=== PATIENT | female | born 1945 | race African-American/Black ===

== ENCOUNTER → 2017-04-03 | Outpatient (CLI) | payer MEDICARE, MEDICAID ==
[~2017-04-03] MED LIST: ATOR20TA65 PO; COR12 PO; DIPH1TAB PO; FURO40TA5 PO; GLIM1TAB2 PO; HYDR-3933 PO; METHIMAZOLE PO; ONDA4TAB50 PO; POTA10TA15 PO; RIVA20TA PO; TRAM50TA PO; XALAO EACHEYE; ZENPEP DR PO
== END | disposition home or self-care (01) ==
LOC: MRI 09:48
PROVIDERS: ATTEND Neurological Surgery
DX: M48.06 Spinal stenosis, lumbar region (principal); M12.88 Other specific arthropathies, not elsewhere classified, other specified site
CPT/HCPCS: 72148

== ENCOUNTER 2018-02-11 02:04 | Inpatient (IN) | payer MEDICARE, MEDICAID ==
[~2018-02-11] VITALS: Ht 162.6 cm; Wt 112.0 kg
[~2018-02-11 02:04] MED LIST changes: +BUDE6HFA INH; +CARV6.2548 PO; -COR12 PO; +DILT30TA38 PO; +ESOM40CA PO; +GABA-531 PO; +LATA2.5D2 EACHEYE; +ZET10 PO
[2018-02-11] MEDS ORDERED: ALBUTEROL (0.083%) 2.5MG/3ML NEB HHN STA (03:49)
[2018-02-11] MEDS ORDERED: PREDNISONE 20MG TABLET PO STA (03:49)
[2018-02-11] MEDS ORDERED: IPRATROPIUM BROMIDE (0.02%) 0.5MG/2.5ML NEB HHN STA (03:49)
[2018-02-11] MEDS ORDERED: MAGNESIUM 2 G PREMIX 50 ML IV ONE (04:00)
[2018-02-11] MEDS ORDERED: FUROSEMIDE 100MG/10ML VIAL IVP ONE (05:00)
[2018-02-11 05:06] LABS: BASOPHILS % 0.3 % (0.0-2.0); EOSINOPHILS % 0.4 % (0.0-5.0); HEMATOCRIT. 41.9 % (36.0-48.0); HEMOGLOBIN. 13.5 g/dL (12.0-16.0); LYMPHOCYTES % 10.3 % (20.0-50.0); MEAN CORPUSCULAR HEMOGLOBIN 29.2 pg (28.0-32.0); MEAN CORPUSCULAR VOLUME 90.4 fL (81.0-99.0); MONOCYTES % 10.5 % (2.0-8.0); NEUTROPHILS % 78.5 % (40.0-76.0); PLATELET 143 x1000/uL (130-400); RED BLOOD CELL COUNT 4.63 mill/uL (4.2-5.4); RED CELL DISTRIBUTION WIDTH 14.7 % (11.6-14.6)
[2018-02-11 05:07] LABS: CHLORIDE 112 mEq/L (98-107)
[2018-02-11 05:11] LABS: PARTIAL THROMBOPLASTIN TIME 26.2 sec (23.4-31.0); PROTHROMBIN TIME 10.7 sec (9.4-11.6)
[2018-02-11] MEDS: METOPROLOL TARTRATE 5MG/5ML VIAL IV SCH ×2 (05:48→07:34)
[2018-02-11] MEDS ORDERED: POTASSIUM CHLORIDE 20MEQ TABLET SR PO ONE (06:00)
[2018-02-11] MEDS ORDERED: DIPHENHYDRAMINE 50MG/ML VIAL IV PRN (10:15)
[2018-02-11] MEDS ORDERED: ONDANSETRON HCL 4MG/2ML VIAL IV PRN (10:15)
[2018-02-11] MEDS ORDERED: ENOXAPARIN 40MG/0.4ML SYR SUBCUT SCH (10:15)
[2018-02-11] MEDS ORDERED: ACETAMINOPHEN 325MG TABLET PO PRN (10:15)
[2018-02-11] MEDS ORDERED: CLONIDINE 0.1MG TABLET PO PRN (10:15)
[2018-02-11 10:38] LABS: BG BASE EXCESS -1.9 mmol/L (-2.0-2.0); BG CARBOXYHEMOGLOBIN 0.5 % (0.5-1.5); BG DEOXYHEMOGLOBIN 2.8 % (0.0-5.0); BG FRACTION INSPIRED OXYGEN 28; BG HCO3 ACT 20.9 mmol/L (22.0-26.0); BG METHEMOGLOBIN 0.1 % (0.0-1.5); BG OXYGEN SATURATION 97.2 % (92.0-98.5); BG OXYHEMOGLOBIN 96.6 % (94.0-97.0); BG PCO2 30.2 mmHg (35.0-45.0); BG PH 7.458 (7.350-7.450); BG PO2 95.6 mmHg (75.0-100.0); BG SAMPLE SITE RIGHT RADIAL; BG TOTAL HEMOGLOBIN 13.5 g/dL (12.0-18.0); BG VENT MODE NASAL CANNULA
[2018-02-11] MEDS ORDERED: TRAMADOL 50MG TABLET PO PRN (11:00)
[2018-02-11 12:32] LABS: LDL CHOLESTEROL 75 mg/dL (5-100)
[2018-02-11 12:34] LABS: HDL CHOLESTEROL 52 mg/dL (40-59)
[2018-02-11 15:36] VITALS: BP 122/74
[2018-02-11] MEDS: FUROSEMIDE 40MG TABLET PO SCH (16:11)
[2018-02-11] MEDS ORDERED: LATANOPROST 0.005% OPHTH DROPS 2.5ML EACHEYE SCH (17:00)
[2018-02-11 17:18] LABS: PHOSPHORUS 2.9 mg/dL (2.5-4.9)
[2018-02-11 17:22] LABS: CREATINE KINASE MB FRACTION 2.6 ng/mL (0.5-3.6)
[2018-02-11] MEDS ORDERED: LEVOFLOXACIN 250MG PREMIX 50 ML IV SCH (18:00)
[2018-02-11 20:00] VITALS: BP 134/74
[2018-02-11] MEDS: LATANOPROST 0.005% OPHTH DROPS 2.5ML EACHEYE SCH (22:43)
[2018-02-11] MEDS: ATORVASTATIN CALCIUM 20MG TABLET PO SCH (22:43)
[2018-02-11] MEDS: GABAPENTIN 300MG CAPSULE PO SCH (22:43)
[2018-02-11] MEDS: ENOXAPARIN 40MG/0.4ML SYR SUBCUT SCH (22:44)
[2018-02-11] MEDS ORDERED: DEXTROSE 50% WATER 50ML SYRINGE IV PRN (23:15)
[2018-02-11 23:17] LABS: CREATINE KINASE MB FRACTION 2.3 ng/mL (0.5-3.6)
[2018-02-12] VITALS: BP 102/79
[2018-02-12 04:00] VITALS: BP_SYST 137; BP_SYST 99; BP_DIAS 58; BP_DIAS 65
[2018-02-12] MEDS: FUROSEMIDE 40MG TABLET PO SCH ×2 (06:23→18:13)
[2018-02-12] MEDS: BLOOD SUGAR DIAGNOSTIC STRIP TEST SCH ×4 (06:45→21:00)
[2018-02-12 07:03] LABS: BASOPHILS % 0.3 % (0.0-2.0); EOSINOPHILS % 1.6 % (0.0-5.0); HEMOGLOBIN. 11.9 g/dL (12.0-16.0); MEAN CORPUSCULAR HEMOGLOBIN 29.7 pg (28.0-32.0); MEAN PLATELET VOLUME 11.5 fl (7.4-10.4); MONOCYTES % 11.9 % (2.0-8.0); NEUTROPHILS % 68.2 % (40.0-76.0); PLATELET 131 x1000/uL (130-400); RED BLOOD CELL COUNT 3.99 mill/uL (4.2-5.4); RED CELL DISTRIBUTION WIDTH 14.1 % (11.6-14.6)
[2018-02-12 07:13] LABS: CHLORIDE 110 mEq/L (98-107)
[2018-02-12] MEDS: PANTOPRAZOLE 40MG DR TABLET PO SCH (07:26)
[2018-02-12] MEDS: INSULIN LISPRO 100 UNITS/ML SUBCUT SCH ×4 (07:27→22:52)
[2018-02-12 08:00] VITALS: BP 115/79
[2018-02-12] MEDS: EZETIMIBE 10MG TABLET PO SCH (08:12)
[2018-02-12] MEDS: ENOXAPARIN 40MG/0.4ML SYR SUBCUT SCH ×2 (08:12→22:42)
[2018-02-12] MEDS: POTASSIUM CHLORIDE 20MEQ TABLET SR PO SCH (08:12)
[2018-02-12] MEDS: METHIMAZOLE 5MG TABLET PO SCH (08:12)
[2018-02-12] MEDS ORDERED: LEVOFLOXACIN 500MG PREMIX 100 ML IV SCH (10:45)
[2018-02-12 12:00] VITALS: BP 115/73
[2018-02-12 14:04] LABS: CLARITY URINE CLEAR (CLEAR); COLOR URINE YELLOW (YELLOW); KETONES URINE NEGATIVE (NEGATIVE); LEUKOCYTE ESTERASE URINE NEGATIVE (NEGATIVE); NITRITE URINE NEGATIVE (NEGATIVE); OCCULT BLOOD URINE NEGATIVE (NEGATIVE); PROTEIN URINE NEGATIVE (NEGATIVE); SPECIFIC GRAVITY URINE 1.014 (1.005-1.030); UROBILINOGEN URINE 0.2 E.U./dL (0.2-1.0)
[2018-02-12 16:00] VITALS: BP 122/81
[2018-02-12] MEDS: IPRATROPIUM/ALBUTEROL 0.5-3(2.5)MG/3ML NEB HHN PRN (16:07)
[2018-02-12] MEDS ORDERED: LEVOFLOXACIN 750MG PREMIX 150 ML IV SCH (18:00)
[2018-02-12 20:00] VITALS: BP 127/85
[2018-02-12] MEDS: LATANOPROST 0.005% OPHTH DROPS 2.5ML EACHEYE SCH (22:41)
[2018-02-12] MEDS: GABAPENTIN 300MG CAPSULE PO SCH (22:41)
[2018-02-12] MEDS: ATORVASTATIN CALCIUM 20MG TABLET PO SCH (22:41)
[2018-02-12] MEDS: HYDROCODONE/ACETAMINOPHEN 10/325MG TABLET PO PRN (22:41)
[2018-02-13] VITALS: BP 142/84
[2018-02-13 04:00] VITALS: BP 136/64
[2018-02-13] MEDS: IPRATROPIUM/ALBUTEROL 0.5-3(2.5)MG/3ML NEB HHN PRN (05:40)
[2018-02-13] MEDS: FUROSEMIDE 40MG TABLET PO SCH (06:27)
[2018-02-13] MEDS: BLOOD SUGAR DIAGNOSTIC STRIP TEST SCH ×4 (06:27→21:36)
[2018-02-13] MEDS: INSULIN LISPRO 100 UNITS/ML SUBCUT SCH ×4 (07:40→21:00)
[2018-02-13] MEDS: PANTOPRAZOLE 40MG DR TABLET PO SCH (07:51)
[2018-02-13] MEDS: POTASSIUM CHLORIDE 20MEQ TABLET SR PO SCH (07:52)
[2018-02-13] MEDS: METHIMAZOLE 5MG TABLET PO SCH ×2 (07:52→16:50)
[2018-02-13] MEDS: EZETIMIBE 10MG TABLET PO SCH (07:52)
[2018-02-13] MEDS: ENOXAPARIN 40MG/0.4ML SYR SUBCUT SCH (07:53)
[2018-02-13 08:05] VITALS: BP 108/70
[2018-02-13 08:14] LABS: CHLORIDE 112 mEq/L (98-107)
[2018-02-13 09:02] LABS: BASOPHILS % 0.3 % (0.0-2.0); EOSINOPHILS % 3.7 % (0.0-5.0); HEMATOCRIT. 39.1 % (36.0-48.0); HEMOGLOBIN. 12.3 g/dL (12.0-16.0); LYMPHOCYTES % 29.9 % (20.0-50.0); MEAN CORPUSCULAR HEMOGLOBIN 28.7 pg (28.0-32.0); MEAN CORPUSCULAR VOLUME 91.2 fL (81.0-99.0); MEAN PLATELET VOLUME 11.7 fl (7.4-10.4); MONOCYTES % 11.6 % (2.0-8.0); NEUTROPHILS % 54.5 % (40.0-76.0); PLATELET 122 x1000/uL (130-400); RED BLOOD CELL COUNT 4.29 mill/uL (4.2-5.4); RED CELL DISTRIBUTION WIDTH 14.6 % (11.6-14.6)
[2018-02-13] MEDS: DILTIAZEM HCL 30MG TABLET PO SCH ×2 (11:47→16:48)
[2018-02-13] MEDS: CARVEDILOL 6.25 MG TABLET PO SCH ×2 (11:47→21:36)
[2018-02-13 12:00] VITALS: BP 119/84
[2018-02-13 15:38] VITALS: BP 99/69
[2018-02-13] MEDS: RIVAROXABAN 20 MG TABLET PO SCH (17:31)
[2018-02-13] MEDS: GLIMEPIRIDE 1MG TABLET PO SCH (17:31)
[2018-02-13 20:00] VITALS: BP 119/77
[2018-02-13] MEDS: GABAPENTIN 300MG CAPSULE PO SCH (21:35)
[2018-02-13] MEDS: ATORVASTATIN CALCIUM 20MG TABLET PO SCH (21:35)
[2018-02-13] MEDS: LATANOPROST 0.005% OPHTH DROPS 2.5ML EACHEYE SCH (21:36)
[2018-02-14] VITALS: BP 106/65
[2018-02-14 04:00] VITALS: BP 101/54
[2018-02-14] MEDS: BLOOD SUGAR DIAGNOSTIC STRIP TEST SCH ×4 (07:25→21:55)
[2018-02-14 07:39] LABS: BASOPHILS % 0.4 % (0.0-2.0); EOSINOPHILS % 3.2 % (0.0-5.0); HEMATOCRIT. 35.8 % (36.0-48.0); HEMOGLOBIN. 11.6 g/dL (12.0-16.0); LYMPHOCYTES % 22.5 % (20.0-50.0); MEAN PLATELET VOLUME 11.9 fl (7.4-10.4); MONOCYTES % 11.2 % (2.0-8.0); NEUTROPHILS % 62.7 % (40.0-76.0); PLATELET 129 x1000/uL (130-400); RED BLOOD CELL COUNT 3.98 mill/uL (4.2-5.4); RED CELL DISTRIBUTION WIDTH 14.8 % (11.6-14.6)
[2018-02-14 07:45] LABS: CHLORIDE 113 mEq/L (98-107)
[2018-02-14 07:53] LABS: T4 FREE 1.28 ng/dL (0.76-1.46)
[2018-02-14 08:00] VITALS: BP 130/80
[2018-02-14] MEDS ORDERED: FUROSEMIDE 40MG TABLET PO SCH (09:00)
[2018-02-14] MEDS: POTASSIUM CHLORIDE 20MEQ TABLET SR PO SCH (09:36)
[2018-02-14] MEDS: FAMOTIDINE 20MG TABLET PO SCH ×2 (09:36→21:53)
[2018-02-14] MEDS: METHIMAZOLE 5MG TABLET PO SCH ×2 (09:36→17:37)
[2018-02-14] MEDS: EZETIMIBE 10MG TABLET PO SCH (09:36)
[2018-02-14] MEDS: RIVAROXABAN 20 MG TABLET PO SCH ×2 (09:37→18:24)
[2018-02-14] MEDS: DILTIAZEM HCL 30MG TABLET PO SCH ×2 (09:37→17:38)
[2018-02-14] MEDS: GLIMEPIRIDE 1MG TABLET PO SCH ×2 (09:37→18:24)
[2018-02-14] MEDS: CARVEDILOL 6.25 MG TABLET PO SCH ×2 (09:37→21:53)
[2018-02-14] MEDS: INSULIN LISPRO 100 UNITS/ML SUBCUT SCH ×4 (09:38→21:55)
[2018-02-14] MEDS ORDERED: LEVOFLOXACIN 250MG TABLET PO SCH (11:00)
[2018-02-14 12:00] VITALS: BP 114/78
[2018-02-14] MEDS ORDERED: DIGOXIN 250MCG TABLET PO NR (15:30)
[2018-02-14 16:00] VITALS: BP 152/83
[2018-02-14] MEDS ORDERED: IOHEXOL-350 100 ML BOTTLE ONE (16:55)
[2018-02-14] MEDS: FUROSEMIDE 40MG TABLET PO SCH (17:37)
[2018-02-14 20:00] VITALS: BP 153/72
[2018-02-14] MEDS: ATORVASTATIN CALCIUM 20MG TABLET PO SCH (21:53)
[2018-02-14] MEDS: GABAPENTIN 300MG CAPSULE PO SCH (21:53)
[2018-02-14] MEDS: LATANOPROST 0.005% OPHTH DROPS 2.5ML EACHEYE SCH (21:53)
[2018-02-15] VITALS: BP 114/97
[2018-02-15] MEDS: IPRATROPIUM/ALBUTEROL 0.5-3(2.5)MG/3ML NEB HHN SCH ×3 (01:48→13:46)
[2018-02-15 04:00] VITALS: BP 108/77
[2018-02-15 06:04] LABS: BASOPHILS % 0.6 % (0.0-2.0); EOSINOPHILS % 2.3 % (0.0-5.0); HEMATOCRIT. 38.9 % (36.0-48.0); HEMOGLOBIN. 12.4 g/dL (12.0-16.0); LYMPHOCYTES % 18.7 % (20.0-50.0); MEAN CORPUSCULAR HEMOGLOBIN 28.6 pg (28.0-32.0); MEAN PLATELET VOLUME 11.6 fl (7.4-10.4); NEUTROPHILS % 68.4 % (40.0-76.0); PLATELET 142 x1000/uL (130-400); RED BLOOD CELL COUNT 4.33 mill/uL (4.2-5.4); RED CELL DISTRIBUTION WIDTH 14.5 % (11.6-14.6)
[2018-02-15] MEDS: FUROSEMIDE 40MG TABLET PO SCH (06:36)
[2018-02-15 06:53] LABS: CHLORIDE 109 mEq/L (98-107)
[2018-02-15] MEDS: BLOOD SUGAR DIAGNOSTIC STRIP TEST SCH ×2 (07:40→12:40)
[2018-02-15 08:00] VITALS: BP 125/79
[2018-02-15] MEDS: GLIMEPIRIDE 1MG TABLET PO SCH (08:06)
[2018-02-15] MEDS: RIVAROXABAN 20 MG TABLET PO SCH (08:06)
[2018-02-15] MEDS: INSULIN LISPRO 100 UNITS/ML SUBCUT SCH ×2 (08:07→13:10)
[2018-02-15] MEDS: HYDROCODONE/ACETAMINOPHEN 10/325MG TABLET PO PRN (08:07)
[2018-02-15] MEDS: POTASSIUM CHLORIDE 20MEQ TABLET SR PO SCH (09:32)
[2018-02-15] MEDS: FAMOTIDINE 20MG TABLET PO SCH (09:32)
[2018-02-15] MEDS: METHIMAZOLE 5MG TABLET PO SCH (09:32)
[2018-02-15] MEDS: EZETIMIBE 10MG TABLET PO SCH (09:32)
[2018-02-15] MEDS: CARVEDILOL 6.25 MG TABLET PO SCH (09:33)
[2018-02-15] MEDS: DILTIAZEM HCL 30MG TABLET PO SCH (09:33)
[2018-02-15 13:01] VITALS: BP 127/78
== END 2018-02-15 14:14 | disposition home or self-care (01) | DRG 291 ==
LOC: ER 02:31 → 7WST 05:58 → ENRESERV 13:41
PROVIDERS: ADMIT Internal Medicine Nephrology; ATTEND Internal Medicine Nephrology
DX: I11.0 Hypertensive heart disease with heart failure (principal); J18.1 Lobar pneumonia, unspecified organism; E46 Unspecified protein-calorie malnutrition; E87.0 Hyperosmolality and hypernatremia; E11.40 Type 2 diabetes mellitus with diabetic neuropathy, unspecified; I27.20 Pulmonary hypertension, unspecified; Z68.41 Body mass index [BMI] 40.0-44.9, adult; J44.0 Chronic obstructive pulmonary disease with (acute) lower respiratory infection; I50.33 Acute on chronic diastolic (congestive) heart failure; I48.2 Chronic atrial fibrillation; E66.9 Obesity, unspecified; E78.00 Pure hypercholesterolemia, unspecified; E78.5 Hyperlipidemia, unspecified; E87.6 Hypokalemia; F32.9 Major depressive disorder, single episode, unspecified; J32.9 Chronic sinusitis, unspecified; Z96.653 Presence of artificial knee joint, bilateral; F41.9 Anxiety disorder, unspecified; H54.7 Unspecified visual loss; I34.0 Nonrheumatic mitral (valve) insufficiency; M19.90 Unspecified osteoarthritis, unspecified site; Z59.0 Homelessness; Z79.01 Long term (current) use of anticoagulants; Z79.84 Long term (current) use of oral hypoglycemic drugs; Z87.891 Personal history of nicotine dependence; Z91.14 Patient's other noncompliance with medication regimen; Z79.899 Other long term (current) drug therapy
CPT/HCPCS: 36415; 36600; 71045; 71275; 74176; 80048; 80053; 80061; 81003; 82375; 82550; 82553; 82805; 82962; 83605; 83735; 83880; 84100; 84439; 84443; 84480; 84484; 85025; 85610; 85730; 87015; 87040; 87045; 87086; 87177; 87209; 87427; 87449; 87493; 87804; 93005; 93970; 94640; 96365; 96375; 97162; 97535; 99291; J1650; J1815; J1940; J1956; J3475; J3490; J7050; J7512; J7611; J7620; Q9967

== ENCOUNTER → 2018-03-19 | Outpatient (CLI) | payer MEDICARE, MEDICAID | END | disposition home or self-care (01) | LOC: MRI 12:26 | PROVIDERS: ATTEND Neurological Surgery | DX: M51.26 Other intervertebral disc displacement, lumbar region (principal); M51.27 Other intervertebral disc displacement, lumbosacral region; M51.36 Other intervertebral disc degeneration, lumbar region; M48.061 Spinal stenosis, lumbar region without neurogenic claudication | CPT/HCPCS: 72148 ==

== ENCOUNTER 2018-07-18 07:25 | Inpatient (IN) | payer MEDICARE, MEDICAID ==
[~2018-07-18] VITALS: Ht 162.6 cm; Wt 119.3 kg
[2018-07-18] VITALS (47 sets, daily range): BP systolic 96–204; BP diastolic 57–162
[~2018-07-18 07:25] MED LIST changes: -POTA10TA15 PO
[2018-07-18] MEDS ORDERED: NOREPINEPHRINE 4 MG in DEXT 5% WATER 250 ML IV STA (08:05)
[2018-07-18] MEDS ORDERED: FENTANYL CITRATE/PF 500 MCG in SODIUM CHLORIDE 0.9% 40 ML IV STA (08:07)
[2018-07-18] MEDS ORDERED: FENTANYL CITRATE/PF 50MCG/ML 2ML VIAL IV ONE (08:15)
[2018-07-18] MEDS ORDERED: NOREPINEPHRINE BITARTRATE/D5W 250 ML IV SCH (08:15)
[2018-07-18] MEDS ORDERED: NOREPINEPHRINE 4 MG in DEXT 5% WATER 246 ML IV PRN (08:15)
[2018-07-18] MEDS ORDERED: MIDAZOLAM HCL 50 MG in DEXTROSE 5% WATER 40 ML IV ONE (08:15)
[2018-07-18] MEDS ORDERED: SODIUM CHLORIDE 0.9% 1000ML BAG (SEPSIS BOLUS) IV ONE (08:15)
[2018-07-18 08:16] LABS: BASOPHILS % 0.4 % (0.0-2.0); EOSINOPHILS % 1.9 % (0.0-5.0); HEMATOCRIT. 46.9 % (36.0-48.0); LYMPHOCYTES % 30.3 % (20.0-50.0); MEAN CORPUSCULAR HEMOGLOBIN 27.6 pg (28.0-32.0); MEAN CORPUSCULAR VOLUME 92.7 fL (81.0-99.0); MEAN PLATELET VOLUME 11.3 fl (7.4-10.4); MONOCYTES % 8.9 % (2.0-8.0); NEUTROPHILS % 58.5 % (40.0-76.0); PLATELET 182 x1000/uL (130-400); RED BLOOD CELL COUNT 5.06 mill/uL (4.2-5.4)
[2018-07-18 08:23] LABS: CHLORIDE 109 mEq/L (98-107)
[2018-07-18] MEDS ORDERED: FENTANYL CITRATE/PF 50MCG/ML 2ML VIAL IV SCH (08:23)
[2018-07-18 08:24] LABS: INR 1.1; PROTHROMBIN TIME 10.7 sec (9.1-11.1)
[2018-07-18] MEDS ORDERED: MIDAZOLAM HCL 50 MG in DEXTROSE 5% WATER 40 ML IV SCH (08:30)
[2018-07-18] MEDS ORDERED: FENTANYL CITRATE/PF 500 MCG in SODIUM CHLORIDE 0.9% 40 ML IV SCH (08:30)
[2018-07-18 08:46] LABS: BG BASE EXCESS -11.3 mmol/L (-2.0-2.0); BG CARBOXYHEMOGLOBIN 0.6 % (0.5-1.5); BG DEOXYHEMOGLOBIN 6.9 % (0.0-5.0); BG HCO3 ACT 18.8 mmol/L (22.0-26.0); BG METHEMOGLOBIN 0.3 % (0.0-1.5); BG OXYHEMOGLOBIN 92.2 % (94.0-97.0); BG PCO2 60.3 mmHg (35.0-45.0); BG PH 7.112 (7.350-7.450); BG PO2 91.3 mmHg (75.0-100.0); BG SAMPLE SITE RIGHT RADIAL; BG TIDAL VOLUME(mL) 550 mL; BG TOTAL HEMOGLOBIN 14.2 g/dL (12.0-18.0); BG VENT MODE VENT - A/C; BG VENT RATE 16 set
[2018-07-18 09:43] LABS: CLARITY URINE CLOUDY (CLEAR); COLOR URINE YELLOW (YELLOW); KETONES URINE NEGATIVE (NEGATIVE); LEUKOCYTE ESTERASE URINE NEGATIVE (NEGATIVE); NITRITE URINE NEGATIVE (NEGATIVE); OCCULT BLOOD URINE 2+ (NEGATIVE); PROTEIN URINE 3+ (NEGATIVE); SPECIFIC GRAVITY URINE 1.009 (1.005-1.030); UROBILINOGEN URINE 0.2 E.U./dL (0.2-1.0)
[2018-07-18] MEDS ORDERED: PIPERACILLIN/TAZ 3.375G PREMIX 50 ML IV ONE (10:00)
[2018-07-18] MEDS ORDERED: LEVOFLOXACIN 750MG PREMIX 150 ML IV ONE (10:00)
[2018-07-18 10:18] LABS: BG BASE EXCESS -3.9 mmol/L (-2.0-2.0); BG CARBOXYHEMOGLOBIN 0.7 % (0.5-1.5); BG DEOXYHEMOGLOBIN 3.6 % (0.0-5.0); BG FRACTION INSPIRED OXYGEN 100; BG HCO3 ACT 22.8 mmol/L (22.0-26.0); BG METHEMOGLOBIN 0.2 % (0.0-1.5); BG OXYGEN SATURATION 96.4 % (92.0-98.5); BG OXYHEMOGLOBIN 95.5 % (94.0-97.0); BG PCO2 47.2 mmHg (35.0-45.0); BG PH 7.301 (7.350-7.450); BG PO2 93.7 mmHg (75.0-100.0); BG SAMPLE SITE RIGHT RADIAL; BG TIDAL VOLUME(mL) 20 mL; BG TOTAL HEMOGLOBIN 14.9 g/dL (12.0-18.0); BG VENT MODE VENT - A/C; BG VENT RATE 550 set
[2018-07-18] MEDS ORDERED: DOCUSATE SODIUM 100MG CAPSULE PO PRN (10:45)
[2018-07-18] MEDS ORDERED: MORPHINE SULFATE 4 MG/ML CPJ (NOT FOR IM USE) IV PRN (10:45)
[2018-07-18] MEDS ORDERED: ONDANSETRON HCL 4MG/2ML INJ IV PRN (10:45)
[2018-07-18] MEDS ORDERED: EPINEPHRINE 0.1MG/ML (1:10,000) 10ML SYR ONE (13:13)
[2018-07-18] MEDS ORDERED: LIDOCAINE HCL 2% 5ML SYRINGE IV ONE (13:13)
[2018-07-18] MEDS ORDERED: CALCIUM CHLORIDE 1GM/10ML SYR IV ONE (13:13)
[2018-07-18] MEDS ORDERED: AMIODARONE HCL 50MG/ML 3ML VIAL IV ONE (13:13)
[2018-07-18] MEDS ORDERED: MAGNESIUM SULFATE 4G IN WATER 100ML PREMIX IV ONE (13:13)
[2018-07-18] MEDS ORDERED: DEXTROSE 50% WATER 50ML SYRINGE IV PRN (13:15)
[2018-07-18] MEDS: BLOOD SUGAR DIAGNOSTIC STRIP TEST SCH ×3 (13:46→23:24)
[2018-07-18] MEDS: DEXTROSE 5% WATER 1,000 ML IV SCH (13:50)
[2018-07-18] MEDS ORDERED: LEVOFLOXACIN 500MG PREMIX 100 ML IV SCH (14:00)
[2018-07-18] MEDS: INSULIN LISPRO 100 UNITS/ML SUBCUT SCH ×3 (14:07→23:52)
[2018-07-18] MEDS: PANTOPRAZOLE SODIUM 40 MG/VIAL IV SCH (14:49)
[2018-07-18 15:35] LABS: BG BASE EXCESS -2.9 mmol/L (-2.0-2.0); BG CARBOXYHEMOGLOBIN 0.1 % (0.5-1.5); BG DEOXYHEMOGLOBIN 0.9 % (0.0-5.0); BG FRACTION INSPIRED OXYGEN 100; BG HCO3 ACT 20.3 mmol/L (22.0-26.0); BG OXYGEN SATURATION 99.1 % (92.0-98.5); BG PCO2 31.5 mmHg (35.0-45.0); BG PH 7.428 (7.350-7.450); BG PO2 163.6 mmHg (75.0-100.0); BG SAMPLE SITE RIGHT RADIAL; BG TIDAL VOLUME(mL) 550 mL; BG TOTAL HEMOGLOBIN 14.8 g/dL (12.0-18.0); BG VENT MODE VENT - A/C; BG VENT RATE 24 set
[2018-07-18] MEDS ORDERED: AMIODARONE HCL 150 MG in DEXT 5% WATER 100 ML IV NR (17:00)
[2018-07-18] MEDS: AMIODARONE HCL 900 MG in DEXT 5% WATER 482 ML IV SCH (17:25)
[2018-07-18 18:00] LABS: BG BASE EXCESS -9.3 mmol/L (-2.0-2.0); BG CARBOXYHEMOGLOBIN 0.7 % (0.5-1.5); BG DEOXYHEMOGLOBIN 9.8 % (0.0-5.0); BG FRACTION INSPIRED OXYGEN 100; BG HCO3 ACT 16.1 mmol/L (22.0-26.0); BG METHEMOGLOBIN 0.2 % (0.0-1.5); BG OXYGEN SATURATION 90.1 % (92.0-98.5); BG OXYHEMOGLOBIN 89.3 % (94.0-97.0); BG PCO2 33.7 mmHg (35.0-45.0); BG PH 7.297 (7.350-7.450); BG PO2 65.3 mmHg (75.0-100.0); BG SAMPLE SITE RIGHT RADIAL; BG TIDAL VOLUME(mL) 550 mL; BG TOTAL HEMOGLOBIN 14.5 g/dL (12.0-18.0); BG VENT MODE VENT - A/C; BG VENT RATE 24 set
[2018-07-18] MEDS ORDERED: SODIUM BICARBONATE 8.4% 1 MEQ/ML 50ML SYR IV NR (18:12)
[2018-07-18 20:41] LABS: *AMPHETAMINES SCREEN URINE NEGATIVE (NEGATIVE); *BARBITURATES SCREEN URINE NEGATIVE (NEGATIVE)
[2018-07-18 20:42] LABS: *BENZODIAZEPINES SCREEN URINE NEGATIVE (NEGATIVE); *COCAINE SCREEN URINE NEGATIVE (NEGATIVE); CANNABINOID URINE SCREEN NEGATIVE (NEGATIVE); METHADONE URINE SCREEN NEGATIVE (NEGATIVE); OPIATES URINE SCREEN NEGATIVE (NEGATIVE); PHENCYCLIDINE URINE SCREEN NEGATIVE (NEGATIVE)
[2018-07-18] MEDS ORDERED: IPRATROPIUM/ALBUTEROL 0.5-3(2.5)MG/3ML NEB HHN SCH (21:00)
[2018-07-18 21:17] LABS: BG BASE EXCESS -1.3 mmol/L (-2.0-2.0); BG CARBOXYHEMOGLOBIN 0.5 % (0.5-1.5); BG DEOXYHEMOGLOBIN 1.1 % (0.0-5.0); BG FRACTION INSPIRED OXYGEN 100; BG HCO3 ACT 20.6 mmol/L (22.0-26.0); BG METHEMOGLOBIN 0.3 % (0.0-1.5); BG OXYGEN SATURATION 98.9 % (92.0-98.5); BG OXYHEMOGLOBIN 98.1 % (94.0-97.0); BG PCO2 27.5 mmHg (35.0-45.0); BG PH 7.492 (7.350-7.450); BG SAMPLE SITE LEFT RADIAL; BG TIDAL VOLUME(mL) 550 mL; BG TOTAL HEMOGLOBIN 14.3 g/dL (12.0-18.0); BG VENT MODE VENT - A/C; BG VENT RATE 24 set
[2018-07-18] MEDS: PIPERACILLIN/TAZ 3.375G PREMIX 50 ML IV SCH (21:45)
[2018-07-19] VITALS (82 sets, daily range): BP systolic 94–202; BP diastolic 41–126
[2018-07-19] MEDS: LIDOCAINE 2G PREMIX 500 ML IV PRN ×2 (01:47→17:45)
[2018-07-19] MEDS: DEXTROSE 5% WATER 1,000 ML IV SCH ×2 (03:36→16:59)
[2018-07-19] MEDS: CLONIDINE 0.1MG TABLET PO PRN (05:32)
[2018-07-19] MEDS: PIPERACILLIN/TAZ 3.375G PREMIX 50 ML IV SCH ×2 (05:32→12:40)
[2018-07-19 05:49] LABS: HEMATOCRIT. 41.9 % (36.0-48.0); MEAN CORPUSCULAR HEMOGLOBIN 26.8 pg (28.0-32.0); MEAN CORPUSCULAR VOLUME 86.2 fL (81.0-99.0); MEAN PLATELET VOLUME 11.2 fl (7.4-10.4); PLATELET 159 x1000/uL (130-400); RED BLOOD CELL COUNT 4.86 mill/uL (4.2-5.4); RED CELL DISTRIBUTION WIDTH 17.6 % (11.6-14.6)
[2018-07-19] MEDS: BLOOD SUGAR DIAGNOSTIC STRIP TEST SCH ×3 (06:07→17:18)
[2018-07-19] MEDS: INSULIN LISPRO 100 UNITS/ML SUBCUT SCH ×3 (06:14→17:27)
[2018-07-19 06:31] LABS: CHLORIDE 107 mEq/L (98-107)
[2018-07-19 06:39] LABS: HDL CHOLESTEROL 60 mg/dL (40-59); LDL CHOLESTEROL 17 mg/dL (5-100)
[2018-07-19 06:43] LABS: CREATINE KINASE MB FRACTION 10.4 ng/mL (0.5-3.6)
[2018-07-19 06:53] LABS: CREATINE KINASE 1173 IU/L (26-192)
[2018-07-19] MEDS: IPRATROPIUM/ALBUTEROL 0.5-3(2.5)MG/3ML NEB HHN PRN ×3 (08:34→14:32)
[2018-07-19 09:00] LABS: BG BASE EXCESS -1.7 mmol/L (-2.0-2.0); BG CARBOXYHEMOGLOBIN 0.2 % (0.5-1.5); BG DEOXYHEMOGLOBIN 0.6 % (0.0-5.0); BG FRACTION INSPIRED OXYGEN 100; BG HCO3 ACT 20.7 mmol/L (22.0-26.0); BG METHEMOGLOBIN 0.1 % (0.0-1.5); BG OXYGEN SATURATION 99.4 % (92.0-98.5); BG OXYHEMOGLOBIN 99.1 % (94.0-97.0); BG PCO2 28.7 mmHg (35.0-45.0); BG PH 7.476 (7.350-7.450); BG PO2 258.5 mmHg (75.0-100.0); BG SAMPLE SITE RIGHT RADIAL; BG TOTAL HEMOGLOBIN 13.2 g/dL (12.0-18.0); BG VENT MODE VENT - A/C; BG VENT RATE 550 set
[2018-07-19] MEDS ORDERED: AMLODIPINE 5MG TABLET PO SCH (09:00)
[2018-07-19] MEDS: PANTOPRAZOLE SODIUM 40 MG/VIAL IV SCH (09:04)
[2018-07-19] MEDS: METRONIDAZOLE 500 MG PREMIX 100 ML IV SCH ×2 (09:04→17:26)
[2018-07-19] MEDS ORDERED: VANCOMYCIN 2,000 MG in DEXT 5% WATER 500 ML IV NR (11:00)
[2018-07-19 12:00] LABS: BG BASE EXCESS -2.8 mmol/L (-2.0-2.0); BG CARBOXYHEMOGLOBIN 0.4 % (0.5-1.5); BG DEOXYHEMOGLOBIN 0.7 % (0.0-5.0); BG FRACTION INSPIRED OXYGEN 100; BG HCO3 ACT 19.3 mmol/L (22.0-26.0); BG METHEMOGLOBIN 0.2 % (0.0-1.5); BG OXYGEN SATURATION 99.3 % (92.0-98.5); BG OXYHEMOGLOBIN 98.7 % (94.0-97.0); BG PCO2 26.6 mmHg (35.0-45.0); BG PH 7.479 (7.350-7.450); BG PO2 176.4 mmHg (75.0-100.0); BG SAMPLE SITE RIGHT RADIAL; BG TIDAL VOLUME(mL) 550 mL; BG TOTAL HEMOGLOBIN 12.8 g/dL (12.0-18.0); BG VENT MODE VENT - A/C; BG VENT RATE 18 set
[2018-07-19] MEDS: AMLODIPINE 5MG TABLET NG SCH ×2 (12:42→17:26)
[2018-07-19] MEDS ORDERED: AMIODARONE HCL 50MG/ML 3ML VIAL IV ONE (13:06)
[2018-07-19] MEDS ORDERED: CALCIUM CHLORIDE 1GM/10ML SYR IV ONE ×2 (13:06→13:16)
[2018-07-19] MEDS ORDERED: LIDOCAINE HCL 2% 5ML SYRINGE IV ONE ×2 (13:06→15:05)
[2018-07-19] MEDS ORDERED: EPINEPHRINE 0.1MG/ML (1:10,000) 10ML SYR ONE ×3 (13:06→15:05)
[2018-07-19] MEDS ORDERED: MAGNESIUM SULFATE 4G IN WATER 100ML PREMIX IV ONE (13:06)
[2018-07-19] MEDS ORDERED: ATROPINE SULFATE 1MG/10ML SYR ONE (13:16)
[2018-07-19] MEDS ORDERED: SODIUM BICARBONATE 7.5% 0.9 MEQ/ML 50ML SYR IV ONE (13:16)
[2018-07-19] MEDS ORDERED: LEVOFLOXACIN 250MG PREMIX 50 ML IV SCH (14:00)
[2018-07-19 14:02] LABS: PLATELET ESTIMATE NORMAL
[2018-07-19] MEDS: MEROPENEM 1,000 MG in SODIUM CHLORIDE 0.9% 100 ML IV SCH (16:58)
[2018-07-19] MEDS: VANCOMYCIN HCL 1000 MG/20 ML ORAL PO SCH (17:26)
[2018-07-19] MEDS: AMIODARONE HCL 900 MG in DEXT 5% WATER 482 ML IV SCH (17:46)
[2018-07-19] MEDS ORDERED: LORAZEPAM 2MG/ML CPJ IM NR (19:45)
[2018-07-19] MEDS: ACETAMINOPHEN 650MG SUPP PR PRN (23:55)
[2018-07-20] VITALS (96 sets, daily range): BP systolic 78–155; BP diastolic 40–92
[2018-07-20] MEDS: AMLODIPINE 5MG TABLET NG SCH
[2018-07-20] MEDS: BLOOD SUGAR DIAGNOSTIC STRIP TEST SCH ×5 (00:27→23:29)
[2018-07-20] MEDS: VANCOMYCIN HCL 1000 MG/20 ML ORAL PO SCH ×5 (00:34→23:25)
[2018-07-20] MEDS: LIDOCAINE 2G PREMIX 500 ML IV PRN ×2 (01:35→10:42)
[2018-07-20] MEDS: DEXTROSE 5% WATER 1,000 ML IV SCH (02:44)
[2018-07-20] MEDS: METRONIDAZOLE 500 MG PREMIX 100 ML IV SCH ×3 (02:44→17:41)
[2018-07-20] MEDS ORDERED: CALCIUM CHLORIDE 1GM/10ML SYR IV NR (04:00)
[2018-07-20] MEDS ORDERED: DOPAMINE 400MG PREMIX 250 ML IV PRN (04:00)
[2018-07-20] MEDS: MEROPENEM 1,000 MG in SODIUM CHLORIDE 0.9% 100 ML IV SCH ×2 (04:03→16:56)
[2018-07-20 05:29] LABS: HEMATOCRIT. 36.9 % (36.0-48.0); HEMOGLOBIN. 11.3 g/dL (12.0-16.0); MEAN CORPUSCULAR HEMOGLOBIN 26.7 pg (28.0-32.0); MEAN CORPUSCULAR VOLUME 86.8 fL (81.0-99.0); MEAN PLATELET VOLUME 11.5 fl (7.4-10.4); PLATELET 99 x1000/uL (130-400); RED BLOOD CELL COUNT 4.25 mill/uL (4.2-5.4); RED CELL DISTRIBUTION WIDTH 17.7 % (11.6-14.6)
[2018-07-20 05:55] LABS: CHLORIDE 100 mEq/L (98-107)
[2018-07-20] MEDS: INSULIN LISPRO 100 UNITS/ML SUBCUT SCH ×5 (06:01→23:30)
[2018-07-20 06:04] LABS: CREATINE KINASE 351 IU/L (26-192)
[2018-07-20 06:07] LABS: CREATINE KINASE MB FRACTION < 1.0 ng/mL (0.5-3.6)
[2018-07-20 09:00] LABS: BG BASE EXCESS 0.3 mmol/L (-2.0-2.0); BG CARBOXYHEMOGLOBIN 0.4 % (0.5-1.5); BG DEOXYHEMOGLOBIN 0.4 % (0.0-5.0); BG FRACTION INSPIRED OXYGEN 100; BG HCO3 ACT 21.4 mmol/L (22.0-26.0); BG METHEMOGLOBIN 0.6 % (0.0-1.5); BG OXYGEN SATURATION 99.6 % (92.0-98.5); BG OXYHEMOGLOBIN 98.6 % (94.0-97.0); BG PCO2 24.6 mmHg (35.0-45.0); BG PH 7.557 (7.350-7.450); BG PO2 323.6 mmHg (75.0-100.0); BG SAMPLE SITE LEFT RADIAL; BG TIDAL VOLUME(mL) 500 mL; BG TOTAL HEMOGLOBIN 11.5 g/dL (12.0-18.0); BG VENT MODE VENT - A/C; BG VENT RATE 18 set
[2018-07-20 09:27] LABS: PLATELET ESTIMATE DECREASED
[2018-07-20] MEDS: PANTOPRAZOLE SODIUM 40 MG/VIAL IV SCH (09:34)
[2018-07-20] MEDS ORDERED: KCL 10MEQ/50ML PREMIX 50 ML IV SCH (10:00)
[2018-07-20] MEDS ORDERED: POTASSIUM PHOS,M-BASIC-D-BASIC 10 MMOL in DEXT 5% WATER 246.6667 ML IV SCH (10:30)
[2018-07-20] MEDS ORDERED: VANCOMYCIN 1250MG in DEXTROSE 5% WATER 250ML IV SCH ×2 (11:00→13:00)
[2018-07-20] MEDS: IPRATROPIUM/ALBUTEROL 0.5-3(2.5)MG/3ML NEB HHN PRN (20:36)
[2018-07-21] VITALS (86 sets, daily range): BP systolic 103–168; BP diastolic 55–102
[2018-07-21] MEDS: AMIODARONE HCL 900 MG in DEXT 5% WATER 482 ML IV SCH (00:29)
[2018-07-21] MEDS: LIDOCAINE 2G PREMIX 500 ML IV PRN (00:32)
[2018-07-21] MEDS: METRONIDAZOLE 500 MG PREMIX 100 ML IV SCH ×3 (01:31→18:31)
[2018-07-21] MEDS: MEROPENEM 1,000 MG in SODIUM CHLORIDE 0.9% 100 ML IV SCH ×2 (03:09→15:21)
[2018-07-21 05:17] LABS: HEMATOCRIT. 34.9 % (36.0-48.0); HEMOGLOBIN. 10.9 g/dL (12.0-16.0); MEAN CORPUSCULAR HEMOGLOBIN 26.9 pg (28.0-32.0); MEAN CORPUSCULAR VOLUME 86.1 fL (81.0-99.0); MEAN PLATELET VOLUME 11.8 fl (7.4-10.4); PLATELET 119 x1000/uL (130-400); RED BLOOD CELL COUNT 4.06 mill/uL (4.2-5.4); RED CELL DISTRIBUTION WIDTH 17.5 % (11.6-14.6)
[2018-07-21] MEDS: VANCOMYCIN HCL 1000 MG/20 ML ORAL PO SCH ×3 (05:21→18:30)
[2018-07-21] MEDS: BLOOD SUGAR DIAGNOSTIC STRIP TEST SCH ×3 (05:47→18:02)
[2018-07-21] MEDS: INSULIN LISPRO 100 UNITS/ML SUBCUT SCH ×3 (05:50→18:31)
[2018-07-21 05:57] LABS: PHOSPHORUS 1.7 mg/dL (2.5-4.9)
[2018-07-21] MEDS ORDERED: POTASSIUM CHLORIDE 20MEQ TABLET SR PO SCH (06:45)
[2018-07-21 07:09] LABS: PLATELET ESTIMATE DECREASED
[2018-07-21] MEDS ORDERED: POTASSIUM PHOS,M-BASIC-D-BASIC 20 MMOL in DEXT 5% WATER 243.3333 ML IV SCH (08:00)
[2018-07-21] MEDS: PANTOPRAZOLE SODIUM 40 MG/VIAL IV SCH (09:25)
[2018-07-21] MEDS: VANCOMYCIN 1250MG in DEXTROSE 5% WATER 250ML IV SCH (11:23)
[2018-07-21] MEDS: AMIODARONE HCL 200 MG TABLET NG SCH ×2 (13:10→18:29)
[2018-07-21 14:25] LABS: BG BASE EXCESS 1.6 mmol/L (-2.0-2.0); BG CARBOXYHEMOGLOBIN 1.2 % (0.5-1.5); BG DEOXYHEMOGLOBIN 1.6 % (0.0-5.0); BG METHEMOGLOBIN 0.4 % (0.0-1.5); BG OXYGEN SATURATION 98.4 % (92.0-98.5); BG OXYHEMOGLOBIN 96.8 % (94.0-97.0); BG PCO2 30.9 mmHg (35.0-45.0); BG PH 7.509 (7.350-7.450); BG PO2 112.5 mmHg (75.0-100.0); BG SAMPLE SITE RIGHT RADIAL; BG TIDAL VOLUME(mL) 550 mL; BG TOTAL HEMOGLOBIN 11.5 g/dL (12.0-18.0); BG VENT MODE VENT - A/C; BG VENT RATE 12 set
[2018-07-21] MEDS: CLONIDINE 0.1MG TABLET PO PRN (16:24)
[2018-07-22] VITALS (48 sets, daily range): BP systolic 127–177; BP diastolic 59–111
[2018-07-22] MEDS: AMIODARONE HCL 200 MG TABLET NG SCH ×4 (00:02→17:35)
[2018-07-22] MEDS: VANCOMYCIN HCL 1000 MG/20 ML ORAL PO SCH ×4 (00:03→17:45)
[2018-07-22] MEDS: BLOOD SUGAR DIAGNOSTIC STRIP TEST SCH ×4 (00:03→17:45)
[2018-07-22] MEDS: IPRATROPIUM/ALBUTEROL 0.5-3(2.5)MG/3ML NEB HHN PRN ×5 (00:10→16:28)
[2018-07-22] MEDS: CLONIDINE 0.1MG TABLET PO PRN ×2 (00:46→17:36)
[2018-07-22] MEDS: ACETAMINOPHEN 650MG SUPP PR PRN ×2 (00:47→20:08)
[2018-07-22] MEDS: METRONIDAZOLE 500 MG PREMIX 100 ML IV SCH ×3 (01:52→17:35)
[2018-07-22] MEDS: MEROPENEM 1,000 MG in SODIUM CHLORIDE 0.9% 100 ML IV SCH ×2 (03:45→15:54)
[2018-07-22] MEDS: VANCOMYCIN 1250MG in DEXTROSE 5% WATER 250ML IV SCH ×2 (05:09→22:55)
[2018-07-22 05:38] LABS: HEMATOCRIT. 32.3 % (36.0-48.0); HEMOGLOBIN. 10.1 g/dL (12.0-16.0); MEAN CORPUSCULAR VOLUME 86.2 fL (81.0-99.0); MEAN PLATELET VOLUME 11.2 fl (7.4-10.4); PLATELET 112 x1000/uL (130-400); RED BLOOD CELL COUNT 3.74 mill/uL (4.2-5.4); RED CELL DISTRIBUTION WIDTH 17.6 % (11.6-14.6)
[2018-07-22 05:42] LABS: PHOSPHORUS 1.6 mg/dL (2.5-4.9)
[2018-07-22] MEDS: INSULIN LISPRO 100 UNITS/ML SUBCUT SCH ×4 (05:48→17:47)
[2018-07-22 08:31] LABS: BG BASE EXCESS 0.7 mmol/L (-2.0-2.0); BG CARBOXYHEMOGLOBIN 0.9 % (0.5-1.5); BG DEOXYHEMOGLOBIN 1.3 % (0.0-5.0); BG FRACTION INSPIRED OXYGEN 50; BG HCO3 ACT 24.6 mmol/L (22.0-26.0); BG OXYGEN SATURATION 98.7 % (92.0-98.5); BG OXYHEMOGLOBIN 97.8 % (94.0-97.0); BG PCO2 36.8 mmHg (35.0-45.0); BG PH 7.443 (7.350-7.450); BG PO2 136.9 mmHg (75.0-100.0); BG SAMPLE SITE RIGHT RADIAL; BG TIDAL VOLUME(mL) 550 mL; BG TOTAL HEMOGLOBIN 10.7 g/dL (12.0-18.0); BG VENT MODE VENT - A/C; BG VENT RATE 12 set
[2018-07-22 08:31] LABS: PLATELET ESTIMATE SLIGHTLY DECREASED
[2018-07-22] MEDS: FUROSEMIDE 40MG/4ML VIAL IVP SCH (08:58)
[2018-07-22] MEDS: PANTOPRAZOLE SODIUM 40 MG/VIAL IV SCH (08:58)
[2018-07-22] MEDS: POTASSIUM CHLORIDE 20MEQ/PACKET PO SCH (08:59)
[2018-07-22] MEDS ORDERED: SODIUM PHOS,M-BASIC-D-BASIC 15 MM in DEXT 5% WATER 245 ML IV NR (09:30)
[2018-07-22] MEDS: ACETAMINOPHEN 650MG/20.3ML UDC PO PRN ×2 (12:38→17:36)
[2018-07-22] MEDS ORDERED: DIGOXIN 500MCG/2ML AMP IV NR (19:30)
[2018-07-22] MEDS: AMLODIPINE 2.5MG TABLET NG SCH (21:19)
[2018-07-23] VITALS (35 sets, daily range): BP systolic 116–175; BP diastolic 61–113
[2018-07-23] MEDS: VANCOMYCIN HCL 1000 MG/20 ML ORAL PO SCH ×4 (00:24→18:39)
[2018-07-23] MEDS: AMIODARONE HCL 200 MG TABLET NG SCH ×4 (00:24→18:36)
[2018-07-23] MEDS: BLOOD SUGAR DIAGNOSTIC STRIP TEST SCH ×4 (00:25→18:34)
[2018-07-23] MEDS: ACETAMINOPHEN 650MG/20.3ML UDC PO PRN (00:32)
[2018-07-23] MEDS: INSULIN LISPRO 100 UNITS/ML SUBCUT SCH ×4 (00:38→18:37)
[2018-07-23] MEDS: METRONIDAZOLE 500 MG PREMIX 100 ML IV SCH ×2 (02:07→09:58)
[2018-07-23] MEDS: MEROPENEM 1,000 MG in SODIUM CHLORIDE 0.9% 100 ML IV SCH ×2 (03:58→15:06)
[2018-07-23 06:08] LABS: HEMATOCRIT. 33.9 % (36.0-48.0); HEMOGLOBIN. 10.5 g/dL (12.0-16.0); MEAN CORPUSCULAR HEMOGLOBIN 27.3 pg (28.0-32.0); MEAN CORPUSCULAR VOLUME 87.8 fL (81.0-99.0); MEAN PLATELET VOLUME 11.4 fl (7.4-10.4); PLATELET 118 x1000/uL (130-400); RED BLOOD CELL COUNT 3.86 mill/uL (4.2-5.4); RED CELL DISTRIBUTION WIDTH 18.3 % (11.6-14.6)
[2018-07-23] MEDS: IPRATROPIUM/ALBUTEROL 0.5-3(2.5)MG/3ML NEB HHN PRN ×2 (07:58→15:42)
[2018-07-23 08:09] LABS: BG CARBOXYHEMOGLOBIN 0.6 % (0.5-1.5); BG DEOXYHEMOGLOBIN 1.5 % (0.0-5.0); BG FRACTION INSPIRED OXYGEN 50; BG HCO3 ACT 24.2 mmol/L (22.0-26.0); BG METHEMOGLOBIN 0.3 % (0.0-1.5); BG OXYGEN SATURATION 98.5 % (92.0-98.5); BG OXYHEMOGLOBIN 97.6 % (94.0-97.0); BG PCO2 37.5 mmHg (35.0-45.0); BG PH 7.427 (7.350-7.450); BG PO2 131.2 mmHg (75.0-100.0); BG SAMPLE SITE RIGHT RADIAL; BG TIDAL VOLUME(mL) 550 mL; BG TOTAL HEMOGLOBIN 10.2 g/dL (12.0-18.0); BG VENT MODE VENT - A/C; BG VENT RATE 12 set
[2018-07-23] MEDS: PANTOPRAZOLE SODIUM 40 MG/VIAL IV SCH (08:45)
[2018-07-23] MEDS: FUROSEMIDE 40MG/4ML VIAL IVP SCH (08:45)
[2018-07-23] MEDS: POTASSIUM CHLORIDE 20MEQ/PACKET PO SCH (08:46)
[2018-07-23] MEDS: AMLODIPINE 2.5MG TABLET NG SCH ×3 (08:46→23:07)
[2018-07-23] MEDS ORDERED: POTASSIUM PHOS,M-BASIC-D-BASIC 15 MMOL in DEXT 5% WATER 245 ML IV NR (09:00)
[2018-07-23] MEDS ORDERED: VANCOMYCIN 1 G PREMIX 200 ML IV SCH (11:30)
[2018-07-23 12:52] LABS: PLATELET ESTIMATE SLIGHTLY DECREASED
[2018-07-24] VITALS (36 sets, daily range): BP systolic 120–201; BP diastolic 55–89
[2018-07-24] MEDS: AMIODARONE HCL 200 MG TABLET NG SCH ×5 (00:08→23:27)
[2018-07-24] MEDS: INSULIN LISPRO 100 UNITS/ML SUBCUT SCH ×4 (00:08→18:04)
[2018-07-24] MEDS: VANCOMYCIN HCL 1000 MG/20 ML ORAL PO SCH ×5 (00:08→23:27)
[2018-07-24] MEDS: IPRATROPIUM/ALBUTEROL 0.5-3(2.5)MG/3ML NEB HHN PRN (00:18)
[2018-07-24] MEDS: MEROPENEM 1,000 MG in SODIUM CHLORIDE 0.9% 100 ML IV SCH ×2 (04:29→15:01)
[2018-07-24] MEDS: BLOOD SUGAR DIAGNOSTIC STRIP TEST SCH ×4 (06:00→18:07)
[2018-07-24] MEDS: AMLODIPINE 2.5MG TABLET NG SCH ×3 (06:14→23:27)
[2018-07-24 06:19] LABS: HEMATOCRIT. 32.8 % (36.0-48.0); HEMOGLOBIN. 10.1 g/dL (12.0-16.0); MEAN CORPUSCULAR HEMOGLOBIN 27.3 pg (28.0-32.0); MEAN PLATELET VOLUME 11.2 fl (7.4-10.4); PLATELET 136 x1000/uL (130-400); RED BLOOD CELL COUNT 3.69 mill/uL (4.2-5.4); RED CELL DISTRIBUTION WIDTH 18.5 % (11.6-14.6)
[2018-07-24 06:34] LABS: PHOSPHORUS 2.8 mg/dL (2.5-4.9)
[2018-07-24] MEDS: FUROSEMIDE 40MG/4ML VIAL IVP SCH (08:25)
[2018-07-24] MEDS: PANTOPRAZOLE SODIUM 40 MG/VIAL IV SCH (08:25)
[2018-07-24 08:26] LABS: BG BASE EXCESS 1.5 mmol/L (-2.0-2.0); BG CARBOXYHEMOGLOBIN 0.7 % (0.5-1.5); BG DEOXYHEMOGLOBIN 0.6 % (0.0-5.0); BG FRACTION INSPIRED OXYGEN 50; BG HCO3 ACT 25.8 mmol/L (22.0-26.0); BG METHEMOGLOBIN 0.1 % (0.0-1.5); BG OXYGEN SATURATION 99.4 % (92.0-98.5); BG OXYHEMOGLOBIN 98.6 % (94.0-97.0); BG PCO2 39.2 mmHg (35.0-45.0); BG PH 7.436 (7.350-7.450); BG PO2 208.1 mmHg (75.0-100.0); BG SAMPLE SITE LEFT RADIAL; BG TIDAL VOLUME(mL) 550 mL; BG TOTAL HEMOGLOBIN 10.8 g/dL (12.0-18.0); BG VENT MODE VENT - A/C; BG VENT RATE 12 set
[2018-07-24] MEDS: POTASSIUM CHLORIDE 20MEQ/PACKET PO SCH (08:26)
[2018-07-24 08:42] LABS: PLATELET ESTIMATE NORMAL
[2018-07-24] MEDS: CLONIDINE 0.1MG TABLET PO PRN ×2 (10:48→23:28)
[2018-07-24] MEDS: ACETAMINOPHEN 650MG/20.3ML UDC PO PRN (15:01)
[2018-07-25] VITALS (47 sets, daily range): BP systolic 137–188; BP diastolic 64–109
[2018-07-25] MEDS: INSULIN LISPRO 100 UNITS/ML SUBCUT SCH ×4 (00:56→17:44)
[2018-07-25] MEDS: MEROPENEM 1,000 MG in SODIUM CHLORIDE 0.9% 100 ML IV SCH ×2 (04:33→16:11)
[2018-07-25] MEDS: AMIODARONE HCL 200 MG TABLET NG SCH ×4 (05:10→23:41)
[2018-07-25] MEDS: AMLODIPINE 2.5MG TABLET NG SCH ×4 (05:11→23:40)
[2018-07-25] MEDS: ACETAMINOPHEN 650MG/20.3ML UDC PO PRN (05:12)
[2018-07-25] MEDS: VANCOMYCIN HCL 1000 MG/20 ML ORAL PO SCH ×4 (05:14→23:49)
[2018-07-25] MEDS: BLOOD SUGAR DIAGNOSTIC STRIP TEST SCH ×4 (05:21→17:34)
[2018-07-25 05:41] LABS: HEMOGLOBIN. 9.8 g/dL (12.0-16.0); MEAN CORPUSCULAR HEMOGLOBIN 27.5 pg (28.0-32.0); MEAN PLATELET VOLUME 10.8 fl (7.4-10.4); PLATELET 172 x1000/uL (130-400); RED BLOOD CELL COUNT 3.56 mill/uL (4.2-5.4)
[2018-07-25 07:34] LABS: ATYPICAL LYMPHOCYTES 2; PLATELET ESTIMATE NORMAL
[2018-07-25] MEDS: PANTOPRAZOLE SODIUM 40 MG/VIAL IV SCH (08:58)
[2018-07-25] MEDS: FUROSEMIDE 40MG/4ML VIAL IVP SCH ×2 (08:58→17:41)
[2018-07-25] MEDS ORDERED: POTASSIUM CHLORIDE 20MEQ/PACKET PO SCH (09:00)
[2018-07-25] MEDS: CLONIDINE 0.1MG TABLET PO PRN (10:48)
[2018-07-25] MEDS: HYDRALAZINE HCL 50MG TABLET NG SCH ×3 (12:14→23:39)
[2018-07-26] VITALS (47 sets, daily range): BP systolic 97–170; BP diastolic 50–109
[2018-07-26] MEDS: INSULIN LISPRO 100 UNITS/ML SUBCUT SCH ×4 (00:09→18:14)
[2018-07-26] MEDS: BLOOD SUGAR DIAGNOSTIC STRIP TEST SCH ×4 (00:10→17:34)
[2018-07-26] MEDS: MEROPENEM 1,000 MG in SODIUM CHLORIDE 0.9% 100 ML IV SCH ×2 (04:32→16:21)
[2018-07-26 05:23] LABS: HEMATOCRIT. 31.5 % (36.0-48.0); HEMOGLOBIN. 9.7 g/dL (12.0-16.0); MEAN CORPUSCULAR HEMOGLOBIN 27.8 pg (28.0-32.0); MEAN CORPUSCULAR VOLUME 90.2 fL (81.0-99.0); MEAN PLATELET VOLUME 10.5 fl (7.4-10.4); PLATELET 214 x1000/uL (130-400); RED BLOOD CELL COUNT 3.49 mill/uL (4.2-5.4); RED CELL DISTRIBUTION WIDTH 19.3 % (11.6-14.6)
[2018-07-26 05:30] LABS: CHLORIDE 111 mEq/L (98-107)
[2018-07-26 06:32] LABS: PLATELET ESTIMATE NORMAL
[2018-07-26] MEDS: FUROSEMIDE 40MG/4ML VIAL IVP SCH ×2 (06:43→18:12)
[2018-07-26] MEDS: AMLODIPINE 2.5MG TABLET NG SCH ×3 (06:44→18:13)
[2018-07-26] MEDS: HYDRALAZINE HCL 50MG TABLET NG SCH ×3 (06:44→18:12)
[2018-07-26] MEDS: VANCOMYCIN HCL 1000 MG/20 ML ORAL PO SCH ×3 (06:45→18:12)
[2018-07-26] MEDS: AMIODARONE HCL 200 MG TABLET NG SCH ×3 (06:45→18:13)
[2018-07-26] MEDS ORDERED: ALBUTEROL (0.5%) 2.5MG/0.5ML NEB HHN PRN (09:15)
[2018-07-26] MEDS ORDERED: ALBUTEROL (0.083%) 2.5MG/3ML NEB HHN PRN (09:15)
[2018-07-26] MEDS: PANTOPRAZOLE SODIUM 40 MG/VIAL IV SCH (09:41)
[2018-07-26 09:48] LABS: BG BASE EXCESS 5.5 mmol/L (-2.0-2.0); BG CARBOXYHEMOGLOBIN 0.7 % (0.5-1.5); BG DEOXYHEMOGLOBIN 5.5 % (0.0-5.0); BG FRACTION INSPIRED OXYGEN 40; BG METHEMOGLOBIN 0.3 % (0.0-1.5); BG OXYGEN SATURATION 94.4 % (92.0-98.5); BG OXYHEMOGLOBIN 93.5 % (94.0-97.0); BG PCO2 43.2 mmHg (35.0-45.0); BG PH 7.459 (7.350-7.450); BG PO2 71.2 mmHg (75.0-100.0); BG SAMPLE SITE RIGHT RADIAL; BG TIDAL VOLUME(mL) 550 mL; BG TOTAL HEMOGLOBIN 10.8 g/dL (12.0-18.0); BG VENT MODE VENT - A/C; BG VENT RATE 12 set
[2018-07-26] MEDS: ACETYLCYSTEINE 100MG/ML 10% VIAL 4ML INH SCH ×2 (11:53→15:56)
[2018-07-26] MEDS: ALBUTEROL (0.083%) 2.5MG/3ML NEB HHN SCH ×3 (11:53→20:31)
[2018-07-26] MEDS: ACETAMINOPHEN 650MG/20.3ML UDC PO PRN (21:40)
[2018-07-27] VITALS (41 sets, daily range): BP systolic 124–162; BP diastolic 52–78
[2018-07-27] MEDS: AMLODIPINE 2.5MG TABLET NG SCH ×5 (00:34→23:42)
[2018-07-27] MEDS: HYDRALAZINE HCL 50MG TABLET NG SCH ×5 (00:35→23:44)
[2018-07-27] MEDS: AMIODARONE HCL 200 MG TABLET NG SCH ×5 (00:35→23:39)
[2018-07-27] MEDS: VANCOMYCIN HCL 1000 MG/20 ML ORAL PO SCH ×5 (00:36→23:44)
[2018-07-27] MEDS: INSULIN LISPRO 100 UNITS/ML SUBCUT SCH ×7 (00:37→23:43)
[2018-07-27] MEDS: BLOOD SUGAR DIAGNOSTIC STRIP TEST SCH ×5 (00:38→23:44)
[2018-07-27] MEDS: ALBUTEROL (0.083%) 2.5MG/3ML NEB HHN SCH ×6 (00:48→20:47)
[2018-07-27] MEDS: ACETYLCYSTEINE 100MG/ML 10% VIAL 4ML INH SCH ×3 (00:48→16:13)
[2018-07-27 06:09] LABS: HEMATOCRIT. 32.3 % (36.0-48.0); HEMOGLOBIN. 9.9 g/dL (12.0-16.0); MEAN CORPUSCULAR HEMOGLOBIN 27.6 pg (28.0-32.0); MEAN CORPUSCULAR VOLUME 90.4 fL (81.0-99.0); MEAN PLATELET VOLUME 10.4 fl (7.4-10.4); PLATELET 292 x1000/uL (130-400); RED BLOOD CELL COUNT 3.58 mill/uL (4.2-5.4); RED CELL DISTRIBUTION WIDTH 19.8 % (11.6-14.6)
[2018-07-27] MEDS: FUROSEMIDE 40MG/4ML VIAL IVP SCH (06:27)
[2018-07-27 06:33] LABS: PHOSPHORUS 3.6 mg/dL (2.5-4.9)
[2018-07-27] MEDS: PANTOPRAZOLE SODIUM 40 MG/VIAL IV SCH (09:35)
[2018-07-27 12:59] LABS: PLATELET ESTIMATE NORMAL
[2018-07-28] VITALS (39 sets, daily range): BP systolic 115–166; BP diastolic 45–89
[2018-07-28] MEDS: ALBUTEROL (0.083%) 2.5MG/3ML NEB HHN SCH ×6 (00:20→20:09)
[2018-07-28] MEDS: ACETYLCYSTEINE 100MG/ML 10% VIAL 4ML INH SCH ×3 (00:20→16:42)
[2018-07-28] MEDS: AMIODARONE HCL 200 MG TABLET NG SCH ×4 (05:20→23:25)
[2018-07-28] MEDS: HYDRALAZINE HCL 50MG TABLET NG SCH ×4 (05:20→23:26)
[2018-07-28] MEDS: AMLODIPINE 2.5MG TABLET NG SCH ×4 (05:20→23:25)
[2018-07-28] MEDS: VANCOMYCIN HCL 1000 MG/20 ML ORAL PO SCH ×4 (05:21→23:27)
[2018-07-28] MEDS: INSULIN LISPRO 100 UNITS/ML SUBCUT SCH ×4 (05:22→23:26)
[2018-07-28 05:26] LABS: HEMATOCRIT. 30.2 % (36.0-48.0); HEMOGLOBIN. 9.3 g/dL (12.0-16.0); MEAN CORPUSCULAR HEMOGLOBIN 27.9 pg (28.0-32.0); MEAN CORPUSCULAR VOLUME 90.6 fL (81.0-99.0); MEAN PLATELET VOLUME 9.6 fl (7.4-10.4); PLATELET 325 x1000/uL (130-400); RED BLOOD CELL COUNT 3.34 mill/uL (4.2-5.4); RED CELL DISTRIBUTION WIDTH 20.3 % (11.6-14.6)
[2018-07-28] MEDS: BLOOD SUGAR DIAGNOSTIC STRIP TEST SCH ×4 (05:26→23:26)
[2018-07-28] MEDS: PANTOPRAZOLE SODIUM 40 MG/VIAL IV SCH (09:00)
[2018-07-28] MEDS: FUROSEMIDE 40MG/4ML VIAL IVP SCH (10:25)
[2018-07-28 16:17] LABS: PLATELET ESTIMATE NORMAL
[2018-07-29] VITALS (49 sets, daily range): BP systolic 112–154; BP diastolic 40–76
[2018-07-29] MEDS: ALBUTEROL (0.083%) 2.5MG/3ML NEB HHN SCH ×6 (00:24→20:53)
[2018-07-29] MEDS: ACETYLCYSTEINE 100MG/ML 10% VIAL 4ML INH SCH ×3 (00:24→16:08)
[2018-07-29] MEDS: AMLODIPINE 2.5MG TABLET NG SCH ×4 (05:21→23:13)
[2018-07-29] MEDS: AMIODARONE HCL 200 MG TABLET NG SCH ×4 (05:21→23:13)
[2018-07-29] MEDS: BLOOD SUGAR DIAGNOSTIC STRIP TEST SCH ×4 (05:22→23:13)
[2018-07-29] MEDS: VANCOMYCIN HCL 1000 MG/20 ML ORAL PO SCH ×4 (05:22→23:13)
[2018-07-29] MEDS: INSULIN LISPRO 100 UNITS/ML SUBCUT SCH ×4 (05:25→23:13)
[2018-07-29] MEDS: HYDRALAZINE HCL 50MG TABLET NG SCH ×4 (06:00→23:12)
[2018-07-29] MEDS: FUROSEMIDE 40MG/4ML VIAL IVP SCH ×2 (09:00→09:41)
[2018-07-29] MEDS: FAMOTIDINE 20MG/2ML VIAL IV SCH (09:41)
[2018-07-29 10:28] LABS: BG BASE EXCESS 9.2 mmol/L (-2.0-2.0); BG CARBOXYHEMOGLOBIN 0.1 % (0.5-1.5); BG FRACTION INSPIRED OXYGEN 45; BG HCO3 ACT 34.5 mmol/L (22.0-26.0); BG METHEMOGLOBIN 0.3 % (0.0-1.5); BG OXYHEMOGLOBIN 98.6 % (94.0-97.0); BG PCO2 51.6 mmHg (35.0-45.0); BG PH 7.443 (7.350-7.450); BG PO2 169.7 mmHg (75.0-100.0); BG SAMPLE SITE LEFT RADIAL; BG TIDAL VOLUME(mL) 550 mL; BG VENT MODE VENT - A/C; BG VENT RATE 12 set
[2018-07-29] MEDS: SODIUM CHLORIDE 0.45% 1,000 ML IV SCH (11:00)
[2018-07-29] MEDS: ACETAMINOPHEN 650MG/20.3ML UDC PO PRN ×2 (12:22→18:23)
[2018-07-30] VITALS (48 sets, daily range): BP systolic 110–161; BP diastolic 52–76
[2018-07-30] MEDS: ACETYLCYSTEINE 100MG/ML 10% VIAL 4ML INH SCH ×2 (00:58→08:29)
[2018-07-30] MEDS: ALBUTEROL (0.083%) 2.5MG/3ML NEB HHN SCH ×6 (00:58→20:15)
[2018-07-30] MEDS: HYDRALAZINE HCL 50MG TABLET NG SCH ×3 (05:32→17:25)
[2018-07-30] MEDS: AMLODIPINE 2.5MG TABLET NG SCH ×3 (05:32→17:25)
[2018-07-30 05:47] LABS: HEMATOCRIT. 30.3 % (36.0-48.0); HEMOGLOBIN. 9.1 g/dL (12.0-16.0); MEAN CORPUSCULAR HEMOGLOBIN 27.9 pg (28.0-32.0); MEAN CORPUSCULAR VOLUME 92.4 fL (81.0-99.0); MEAN PLATELET VOLUME 9.6 fl (7.4-10.4); PLATELET 338 x1000/uL (130-400); RED BLOOD CELL COUNT 3.28 mill/uL (4.2-5.4); RED CELL DISTRIBUTION WIDTH 21.3 % (11.6-14.6)
[2018-07-30] MEDS: VANCOMYCIN HCL 1000 MG/20 ML ORAL PO SCH ×3 (05:57→17:25)
[2018-07-30] MEDS: BLOOD SUGAR DIAGNOSTIC STRIP TEST SCH ×3 (05:57→17:25)
[2018-07-30] MEDS: AMIODARONE HCL 200 MG TABLET NG SCH ×3 (05:57→17:25)
[2018-07-30] MEDS: INSULIN LISPRO 100 UNITS/ML SUBCUT SCH ×3 (05:58→17:59)
[2018-07-30] MEDS: SODIUM CHLORIDE 0.45% 1,000 ML IV SCH (06:27)
[2018-07-30 10:05] LABS: PLATELET ESTIMATE NORMAL
[2018-07-30] MEDS: FAMOTIDINE 20MG/2ML VIAL IV SCH (10:18)
[2018-07-30] MEDS: CLONIDINE 0.1MG TABLET PO PRN (21:09)
[2018-07-31] VITALS (47 sets, daily range): BP systolic 117–154; BP diastolic 46–71
[2018-07-31] MEDS: ALBUTEROL (0.083%) 2.5MG/3ML NEB HHN SCH ×6 (00:03→20:12)
[2018-07-31] MEDS: HYDRALAZINE HCL 50MG TABLET NG SCH ×4 (00:06→17:53)
[2018-07-31] MEDS: INSULIN LISPRO 100 UNITS/ML SUBCUT SCH ×4 (00:07→17:58)
[2018-07-31] MEDS: AMIODARONE HCL 200 MG TABLET NG SCH ×3 (00:07→17:53)
[2018-07-31] MEDS: VANCOMYCIN HCL 1000 MG/20 ML ORAL PO SCH ×4 (00:07→17:53)
[2018-07-31] MEDS: BLOOD SUGAR DIAGNOSTIC STRIP TEST SCH ×4 (00:07→17:54)
[2018-07-31] MEDS: AMLODIPINE 2.5MG TABLET NG SCH ×4 (00:07→17:53)
[2018-07-31] MEDS: SODIUM CHLORIDE 0.45% 1,000 ML IV SCH ×2 (01:02→22:30)
[2018-07-31] MEDS: FAMOTIDINE 20MG/2ML VIAL IV SCH (09:45)
[2018-08-01] VITALS (48 sets, daily range): BP systolic 102–151; BP diastolic 44–81
[2018-08-01] MEDS: ALBUTEROL (0.083%) 2.5MG/3ML NEB HHN SCH ×7 (00:02→23:57)
[2018-08-01] MEDS: AMLODIPINE 2.5MG TABLET NG SCH ×4 (00:41→18:00)
[2018-08-01] MEDS: HYDRALAZINE HCL 50MG TABLET NG SCH ×4 (00:41→18:00)
[2018-08-01] MEDS: VANCOMYCIN HCL 1000 MG/20 ML ORAL PO SCH ×3 (00:42→12:18)
[2018-08-01] MEDS: INSULIN LISPRO 100 UNITS/ML SUBCUT SCH ×4 (00:42→18:35)
[2018-08-01] MEDS: AMIODARONE HCL 200 MG TABLET NG SCH ×2 (05:56→18:00)
[2018-08-01] MEDS: BLOOD SUGAR DIAGNOSTIC STRIP TEST SCH ×5 (05:57→23:51)
[2018-08-01] MEDS: FAMOTIDINE 20MG/2ML VIAL IV SCH (08:55)
[2018-08-01] MEDS: SODIUM CHLORIDE 0.45% 1,000 ML IV SCH (18:37)
[2018-08-02] VITALS (43 sets, daily range): BP systolic 113–160; BP diastolic 43–134
[2018-08-02] MEDS: INSULIN LISPRO 100 UNITS/ML SUBCUT SCH ×4 (00:06→17:48)
[2018-08-02] MEDS: AMLODIPINE 2.5MG TABLET NG SCH ×4 (00:06→17:43)
[2018-08-02] MEDS: HYDRALAZINE HCL 50MG TABLET NG SCH ×4 (00:06→17:43)
[2018-08-02] MEDS: ALBUTEROL (0.083%) 2.5MG/3ML NEB HHN SCH ×5 (04:10→20:53)
[2018-08-02] MEDS: AMIODARONE HCL 200 MG TABLET NG SCH ×2 (05:14→17:41)
[2018-08-02] MEDS: BLOOD SUGAR DIAGNOSTIC STRIP TEST SCH ×3 (05:15→18:00)
[2018-08-02 05:43] LABS: BASOPHILS % 0.3 % (0.0-2.0); EOSINOPHILS % 2.6 % (0.0-5.0); HEMATOCRIT. 27.9 % (36.0-48.0); HEMOGLOBIN. 8.6 g/dL (12.0-16.0); LYMPHOCYTES % 7.4 % (20.0-50.0); MEAN CORPUSCULAR HEMOGLOBIN 28.7 pg (28.0-32.0); MEAN CORPUSCULAR VOLUME 93.2 fL (81.0-99.0); MEAN PLATELET VOLUME 10.1 fl (7.4-10.4); MONOCYTES % 7.6 % (2.0-8.0); NEUTROPHILS % 82.1 % (40.0-76.0); PLATELET 284 x1000/uL (130-400); RED BLOOD CELL COUNT 2.99 mill/uL (4.2-5.4); RED CELL DISTRIBUTION WIDTH 20.5 % (11.6-14.6)
[2018-08-02 06:03] LABS: CHLORIDE 112 mEq/L (98-107)
[2018-08-02] MEDS: FAMOTIDINE 20MG/2ML VIAL IV SCH (08:26)
[2018-08-02] MEDS: SODIUM CHLORIDE 0.45% 1,000 ML IV SCH (14:30)
[2018-08-03] VITALS (31 sets, daily range): BP systolic 115–147; BP diastolic 48–87
[2018-08-03] MEDS: INSULIN LISPRO 100 UNITS/ML SUBCUT SCH ×3 (00:14→12:04)
[2018-08-03] MEDS: AMLODIPINE 2.5MG TABLET NG SCH ×3 (00:15→12:00)
[2018-08-03] MEDS: HYDRALAZINE HCL 50MG TABLET NG SCH ×3 (00:15→12:00)
[2018-08-03] MEDS: BLOOD SUGAR DIAGNOSTIC STRIP TEST SCH ×3 (00:16→11:56)
[2018-08-03] MEDS: ALBUTEROL (0.083%) 2.5MG/3ML NEB HHN SCH ×4 (01:02→12:35)
[2018-08-03 05:41] LABS: HEMATOCRIT. 27.4 % (36.0-48.0); HEMOGLOBIN. 8.6 g/dL (12.0-16.0); MEAN CORPUSCULAR HEMOGLOBIN 29.1 pg (28.0-32.0); MEAN CORPUSCULAR VOLUME 92.7 fL (81.0-99.0); MEAN PLATELET VOLUME 9.9 fl (7.4-10.4); PLATELET 265 x1000/uL (130-400); RED BLOOD CELL COUNT 2.96 mill/uL (4.2-5.4); RED CELL DISTRIBUTION WIDTH 20.1 % (11.6-14.6)
[2018-08-03 05:48] LABS: CHLORIDE 113 mEq/L (98-107)
[2018-08-03] MEDS: AMIODARONE HCL 200 MG TABLET NG SCH (06:26)
[2018-08-03 07:53] LABS: PLATELET ESTIMATE NORMAL
[2018-08-03] MEDS: FAMOTIDINE 20MG/2ML VIAL IV SCH (08:50)
[2018-08-03] MEDS ORDERED: MORPHINE SULFATE 250 MG in DEXT 5% WATER 240 ML IV PRN (12:00)
[2018-08-03] MEDS: SODIUM CHLORIDE 0.45% 1,000 ML IV SCH (12:45)
== END 2018-08-03 16:10 | disposition expired | DRG 207 ==
LOC: ER 07:25 → EDBEDREQSVC 08:43 → EDBEDREQ 08:43 → MICUSO 10:21 → EDBEDREQ 10:27 → EDBEDREQTM 10:27 → ENRESERV 11:57
PROVIDERS: ADMIT Internal Medicine Nephrology; ATTEND Internal Medicine Nephrology
PROC: 5A1955Z Respiratory Ventilation, Greater than 96 Consecutive Hours (ICD-10-PCS; principal; 2018-07-18)
PROC: 0BH17EZ Insertion of Endotracheal Airway into Trachea, Via Natural or Artificial Opening (ICD-10-PCS; 2018-07-18)
PROC: 5A12012 Performance of Cardiac Output, Single, Manual (ICD-10-PCS; 2018-07-18)
PROC: 5A2204Z Restoration of Cardiac Rhythm, Single (ICD-10-PCS; 2018-07-19)
PROC: 4A00X4Z Measurement of Central Nervous Electrical Activity, External Approach (ICD-10-PCS; 2018-07-19)
PROC: 4A00X4Z Measurement of Central Nervous Electrical Activity, External Approach (ICD-10-PCS; 2018-07-23)
DX: J96.01 Acute respiratory failure with hypoxia (principal); N17.0 Acute kidney failure with tubular necrosis; J18.9 Pneumonia, unspecified organism; D68.59 Other primary thrombophilia; E87.2 Acidosis; G93.1 Anoxic brain damage, not elsewhere classified; I50.32 Chronic diastolic (congestive) heart failure; N39.0 Urinary tract infection, site not specified; I47.2 Ventricular tachycardia; A04.72 Enterocolitis due to Clostridium difficile, not specified as recurrent; J44.0 Chronic obstructive pulmonary disease with (acute) lower respiratory infection; J98.11 Atelectasis; Z68.42 Body mass index [BMI] 45.0-49.9, adult; Z99.11 Dependence on respirator [ventilator] status; E87.0 Hyperosmolality and hypernatremia; Z66 Do not resuscitate; I46.9 Cardiac arrest, cause unspecified; I49.01 Ventricular fibrillation; E05.90 Thyrotoxicosis, unspecified without thyrotoxic crisis or storm; E11.36 Type 2 diabetes mellitus with diabetic cataract; E66.01 Morbid (severe) obesity due to excess calories; E78.00 Pure hypercholesterolemia, unspecified; F32.9 Major depressive disorder, single episode, unspecified; F41.9 Anxiety disorder, unspecified; H40.9 Unspecified glaucoma; I11.0 Hypertensive heart disease with heart failure; I34.0 Nonrheumatic mitral (valve) insufficiency; I48.2 Chronic atrial fibrillation; E11.319 Type 2 diabetes mellitus with unspecified diabetic retinopathy without macular edema; J32.9 Chronic sinusitis, unspecified; E78.5 Hyperlipidemia, unspecified; D72.829 Elevated white blood cell count, unspecified; G43.909 Migraine, unspecified, not intractable, without status migrainosus; Z96.653 Presence of artificial knee joint, bilateral; G47.9 Sleep disorder, unspecified; H91.90 Unspecified hearing loss, unspecified ear; I27.20 Pulmonary hypertension, unspecified; M17.0 Bilateral primary osteoarthritis of knee; Z51.5 Encounter for palliative care; Z79.01 Long term (current) use of anticoagulants; Z59.0 Homelessness; Z87.891 Personal history of nicotine dependence; Z91.14 Patient's other noncompliance with medication regimen; Z98.41 Cataract extraction status, right eye; Z90.49 Acquired absence of other specified parts of digestive tract
CPT/HCPCS: 36415; 36600; 70450; 71045; 74176; 78580; 80048; 80053; 80061; 80202; 80305; 81003; 82375; 82550; 82553; 82805; 82962; 83036; 83605; 83690; 83735; 84100; 84132; 84484; 85025; 85610; 87015; 87040; 87045; 87070; 87086; 87106; 87427; 87449; 87493; 89055; 93005; 93306; 93880; 93970; 94002; 94003; 94640; 96365; 96375; 99291; A6261; C9113; J0282; J0461; J1160; J1265; J1815; J1940; J1956; J2001; J2185; J2250; J2543; J3010; J3370; J3475; J3480; J3490; J7030; J7050; J7060; J7070; J7608; J7611; J7620; A4315